=== PATIENT | female | born 1945 | race Caucasian/White ===

== ENCOUNTER 2020-02-06 13:44 | Emergency (ER) | payer MEDICARE, BC ==
[~2020-02-06] VITALS: Ht 154.9 cm; Wt 124.0 kg
[~2020-02-06 13:44] MED LIST: ALTACE10 M1 PO; ALTACE2.5 M1 PO; ALTACE5 M1 PO; AMBIEN10 MG PO; AMBIEN5 MG PO; AMOXICILLIN/PO500 MG PO; ATENOLOL50 MG OR; AUGMENTIN500TAB PO; BABY ASPIRIN81 MG PO; CITRACA1 PO; CLONIDINE0.2 MG OR; CLONIDINE0.2 MG PO; FLUARIX QUADRIV1 INJ IM; FLULAVAL IM; FUROSEMIDE20 MG PO; HALCION0.25 MG PO; LANTUS IM; LANTUS SOLOSTAR SC; LORTAB 1010 MG PO; LORTAB 7.5 PO; LORTAB 7.57.5 MG PO; LYRICA50 MG PO; LYRICA75 MG PO; METFORMIN HCL1000 M1 PO; METFORMIN500 M2 PO; MICRO-K10 MEQ PO; MULT1 PO; NORVASC10 M1 PO; OMEPRAZOLE40 MG PO; PLAVIX75 MG PO; POLYSPORIN3.5 GM OP; ROBITUSSIN AC10 ML PO; TRICOR145 MG PO; VYTORIN 10/201 TAB PO; ZYRTEC-D AL1 OR; ZYRTEC-D AL1 PO; [UNRECOGNIZED DRUG - OTHER] PO
[2020-02-06 14:54] LABS: HEMOGLOBIN 13.3 g/dl (12.0-16.0); IMMATURE GRANULOCYTES 0.5 % (0.0-5.0); MEAN CELL VOLUME 85.8 fL CALC (80.0-100.0); MEAN CORPUSCULAR HGB 27.8 pG CALC (26.0-32.0); MEAN CORPUSCULAR HGB CONC 32.4 g/dL CAL (32.0-36.0); NEUT# 5.56 thou/uL (2.00-7.15); RED BLOOD COUNT 4.78 mill/uL (4.20-5.60); RED CELL DISTRI WIDTH 14.8 % (11.5-15.5)
[2020-02-06 15:13] LABS: ALBUMIN 4.2 g/dL (3.2-5.0); ALKALINE PHOSPHATASE 40 u/l (38-126); AMYLASE 66 u/l (30-110); ANION GAP 14 (6-22 (CALC)); BILIRUBIN, TOTAL 0.4 mg/dL (0.0-1.4); BUN 18 mg/dL (8-23); BUN/CREATININE RATIO 19 (12-20 (CALC)); CARBON DIOXIDE 25 mmol/l (22-30); CHLORIDE 104 mmol/l (95-108); GFR 54 ML/MIN (>=60 (CALC)); GFR FOR AFR.AMER. > 60 ML/MIN (>=60 (CALC)); LIPASE 78 u/l (23-300); POTASSIUM 3.7 mmol/l (3.5-5.1); SGOT/AST 38 u/l (9-36); SODIUM 139 mmol/l (137-146); TOTAL PROTEIN 7.5 g/dL (6.3-8.2)
[2020-02-06 16:25] LABS: URINE BLOOD DIPSTICK SMALL (NEGATIVE); URINE COLOR YELLOW; URINE GLUCOSE - DIPSTICK NEGATIVE (NEGATIVE); URINE KETONE 15 mg/dL (NEGATIVE); URINE LEUK ESTERASE NEGATIVE (NEGATIVE); URINE NITRITE - DIPSTICK NEGATIVE (Negative); URINE PROTEIN - DIPSTICK >=300 mg/dL (NEG-TRACE); URINE SPECIFIC GRAVITY 1.025; URINE UROBILINOGEN - DIPSTICK 0.2 E.U./dL (0.2)
[2020-02-06 16:36] LABS: URINE BILIRUBIN - DIPSTICK NEGATIVE (NEGATIVE)
[2020-02-06 16:37] LABS: URINE SQUAMOUS EPITHELIAL CELL FEW EPI/hpf (0-FEW); URINE WBC 0-2 WBC/hpf (0-5)
[2020-02-06] MEDS ORDERED: ZOFRAN4 MG/TAB PO (17:23)
[2020-02-06] MEDS ORDERED: PROTONIX40 MG PO (17:23)
[2020-02-06] MEDS ORDERED: CARAFATE1 GM PO (17:23)
[2020-02-06] MEDS ORDERED: LORTAB 1010 MG PO (18:12)
[2020-02-06 18:21] VITALS: BP 165/109
== END 2020-02-06 18:20 | disposition home or self-care (01) ==
LOC: ED 13:44
DX: R11.2 Nausea with vomiting, unspecified (principal); R10.13 Epigastric pain; C43.9 Malignant melanoma of skin, unspecified; C79.9 Secondary malignant neoplasm of unspecified site; I10 Essential (primary) hypertension; E11.9 Type 2 diabetes mellitus without complications; Z79.4 Long term (current) use of insulin
CPT/HCPCS: Q9967

== ENCOUNTER 2020-02-07 08:14 | Observation (INO) | payer MEDICARE, BC ==
[~2020-02-07] VITALS: Ht 154.9 cm; Wt 112.6 kg
[~2020-02-07 08:14] MED LIST changes: +CARAFATE1 GM PO; +PROTONIX40 MG PO; +ZOFRAN4 MG/TAB PO
--- NOTE | 2020-02-07 08:15 | NUR ---
DR OSMAN AT BEDSIDE; PT MEDICATED PER MAR FOR EPIGASTRIC PAIN AND NAUSEA
--- NOTE | 2020-02-07 08:15 | NUR ---
PATIENT TO ROOM VIA EMS STRETCHER
[2020-02-07 08:47] LABS: HEMATOCRIT 40.4 % (37.0-47.0); HEMOGLOBIN 13.2 g/dl (12.0-16.0); IMMATURE GRANULOCYTES 0.5 % (0.0-5.0); MEAN CELL VOLUME 85.2 fL CALC (80.0-100.0); MEAN CORPUSCULAR HGB 27.8 pG CALC (26.0-32.0); MEAN CORPUSCULAR HGB CONC 32.7 g/dL CAL (32.0-36.0); NEUT# 5.3 thou/uL (2.00-7.15); RED BLOOD COUNT 4.74 mill/uL (4.20-5.60); RED CELL DISTRI WIDTH 14.9 % (11.5-15.5)
[2020-02-07 09:08] LABS: ALBUMIN 3.9 g/dL (3.2-5.0); BILIRUBIN, TOTAL 0.4 mg/dL (0.0-1.4); CREATININE 1.1 mg/dL (0.5-1.0); POTASSIUM 3.7 mmol/l (3.5-5.1); TOTAL PROTEIN 7.1 g/dL (6.3-8.2)
--- NOTE | 2020-02-07 09:15 | NUR ---
PT IS STILL HAVE SOME NAUSEA. MORE MEDICATION IS BEING ORDERED. PAIN SEEMS TO BE GETTING BETTER.
[2020-02-07 09:38] LABS: TSH, 3RD GENERATION 1.7 uIU/mL (0.47 - 4.68)
--- NOTE | 2020-02-07 10:15 | NUR ---
PT IS RESTING BETTER AFTER MEDICATION. PT IS AWAITING ROOM ASSIGNMENT. NO DISTRESS NOTED.
--- NOTE | 2020-02-07 10:49 | NUR ---
RECIEVED REPORT FROM SIDRA TRUJILLO. PT ARRIVED TO MED SURG ROOM 269 IN STABLE CONDITON VIA WHEEL CHAIR. PT WALKED TO BED WITH UNSTEADY GAIT, FALL RISK BAND APPLIED. ASSESSMENT AND VITALS COMPLETED AT THIS TIME. BP 180/52, HR 99, O2 96% ON 2L NC. RESPIRATIONS ARE LABORED FROM WALKING TO STRETCHER TO BED, HAD PT LAY IN BED WITH HEAD UP. LUNG SOUNDS ARE CLEAR. HEART RHYTHM IS NORMAL, TELE IN PLACE. BOWEL SOUNDS ARE ACTIVE IN ALL QUADRANTS WITH SOME TENDERNESS.LAST REPORTED BM 02/05/2020. PT REPORTS NAUSEA, ZOFRAN TO BE ADMINISTERED. RADIAL AND PEDAL PULSES ARE STRONG WITH NORMAL CAPILLARY REFILL. NO EDEMA OR SKIN BREAK DOWN PRESENT. PT PRESENTED TO ER WITH NAUSEA. PT STATES SHE HAS NO KNOWN ALLERGIES, ALLERGY BAND APPLIED. #20G IN LAC FLUSHED, SITE APPEARS HEALTHY AND PATENT. IV FLUIDS STARTED AT 100 ML ORDERED. PT DENIES ANY PAIN OR DISCOMFORTS AT THIS TIME.ALL SAFTEY PRECAUTIONS IN PLACE, PT ORIENTING TO CALL SYSTEM AND ROOM. WILL CONTINUE TO MONITOR.
--- NOTE | 2020-02-07 10:50 | NUR ---
Admission Note Report Given to: PIPER Transported by: Wheelchair X Stretcher Transported with: X Nurse Transporter X Patent IV X O2 X Planning Feeder Location: ICU X MS2
[2020-02-07 11:00] VITALS: BP 180/52
[2020-02-07 12:04] VITALS: BP 187/80
--- NOTE | 2020-02-07 12:36 | NUR ---
PT RESTING IN SEMI FOWLERS POSITION, RESPIRATIONS ARE EVEN AND UNLABORED. REASSESSMENT OF BLOOD PRESSURE RESULTING IN 187/80, HR 105. CATAPRESS ADMINISTERED AT THIS TIME. PT COMPLAINING OF NAUSEA, ZOFRAN ALSO ADMINISTERED. PT DENIES ANY PAINS OR ADDITIONAL NEEDS. ALL SAFETY PRECAUTIONS PRECAUTIONS IN PLACE WITH CALL LIGHT IN REACH. WILL CONTINUE TO MONITOR
--- NOTE | 2020-02-07 13:19 | NUR ---
REASSESSMENT OF BP RESULTING IN 162/81, HR 101, O2 95% ON ROOM AIR. PT REPORTS NAUSEA STILL AT THIS TIME. WRITTER EXPLAINED TO PT TO ALLOW MORE TIME FOR CELESTINA TO WORK AND SPEAK TO AGATHA, ANRP TO GET SOMETHING ELSE THAT WOULD ASSIST. AGATHA NOTIFIED AT THIS TIME. AWAITNG ORDERS. ALL SAFTEY PRECAUTIONS IN PLACE WITH CALL LIGHT IN REACH. WILL CONTINUE TO MONITOR
[2020-02-07 15:15] VITALS: BP 181/69
--- NOTE | 2020-02-07 15:38 | NUR ---
PHENERGAN ADMINISTERED AT THIS TIME TO ASSIST WITH NAUSEA. RESPIRATIONS ARE EVEN AND UNLABORED AT THIS TIME.ASK PT IF SHE WAS EXPRIENCING ANY PAIN, PT VERBALIZED SHE WAS NOT AND DIDNT NEED ANY PAIN MEDICATION. ALL SAFTEY PRECAUTIONS IN PLACE WITH CALL LIGHT IN REACH. WILL CONTINEU TO MONITOR.
--- NOTE | 2020-02-07 15:43 | NUR ---
REPORTED BP 181/89 AND HR 88. PT STILL COMPLAINS OF NAUSEA. AGATHA, INFORMED. PHENERGAN ADMINISTERED AT THIS TIME. LISINOPRIL AND NORVSAC TO BE ADMISITERED TO ASSIST WITH BP AFTER NAUSEA RESOLVES. ALL SAFTEY PRECAUTIONS IN PLACE. WILL CONTINUE TO MONITOR
[2020-02-07 16:38] VITALS: BP 178/63
--- NOTE | 2020-02-07 17:10 | NUR ---
NORVASC AND LISINOPRIL ADMINISTERED AT THIS TIME TO ASSIST WITH BP. ALL SAFTEY PRECAUTIONS IN PLACE WITH CALL LIGHT IN REACH. NESSA CONTINUE TO MONITOR
[2020-02-07 18:30] VITALS: BP 209/73
--- NOTE | 2020-02-07 18:36 | NUR ---
PT BLOOD PRESSURE ELEVATED AT 209/73 HR 101, PT ASYMPTOMATIC AT THIS TIME. NOTIFIED AND NEW ORDERS RECEIVED.
--- NOTE | 2020-02-07 18:48 | NUR ---
PT REPORTS NAUSEA AT THIS TIME. INFORMED PT THAT THE ONLY AVAILABLE MED FOR NAUSEA WAS ZOFRAN. PT VERBALIZED UNDERSTANDING. ZOFRAN ADMINISTERED AT THIS TIME.ALL SAFTEY PRECAUTIONS IN PLACE WITH CALL LIGHT IN REACH. WILL CONTINUE TO MONITOR
[2020-02-07 19:10] VITALS: BP 194/60
[2020-02-07 19:12] LABS: URINE BLOOD DIPSTICK LARGE (NEGATIVE); URINE COLOR YELLOW; URINE GLUCOSE - DIPSTICK 100 mg/dL (NEGATIVE); URINE KETONE NEGATIVE (NEGATIVE); URINE LEUK ESTERASE NEGATIVE (NEGATIVE); URINE NITRITE - DIPSTICK NEGATIVE (Negative); URINE PH 5.5 (4.5-8.0); URINE PROTEIN - DIPSTICK >=300 mg/dL (NEG-TRACE); URINE SPECIFIC GRAVITY >=1.030; URINE UROBILINOGEN - DIPSTICK 0.2 E.U./dL (0.2)
[2020-02-07 19:14] LABS: URINE BILIRUBIN - DIPSTICK NEGATIVE (NEGATIVE)
[2020-02-07 19:20] LABS: URINE AMORPH SEDIMENT FEW hpf (NONE-FEW); URINE SQUAMOUS EPITHELIAL CELL FEW EPI/hpf (0-FEW)
--- NOTE | 2020-02-07 21:30 | NUR ---
PT RESTING IN BED ALERT AND ORIENTED. RESPIRATIONS EVEN AND UNLABORED ON O2 @ 2L VIS NC. PT NAUSEATED AND COMPLAINS OF PAIN IN HER ABD. PT TO BE MEDICATED PER EMAR ORDERS. SAFETY PRECAUTIONS IN PLACE. WILL CONTINUE TO MONITOR.
[2020-02-08] VITALS (11 sets, daily range): BP systolic 136–185; BP diastolic 62–80
--- NOTE | 2020-02-08 00:02 | NUR ---
PT RESTING IN BED, FREE FROM DISTRESS AT THIS TIME. BED ALARM ACTIVE FOR PT SAFETY. WILL CONTINUE TO MONITOR.
--- NOTE | 2020-02-08 05:56 | NUR ---
PT RESTING IN BED, RESPIRATIONS EVEN AND UNLABORED, SAFETY PRECAUTIONS IN PLACE.
--- NOTE | 2020-02-08 07:30 | NUR ---
RECIEVED REPORT FROM SIDRA INIGUEZ. PT SLEEPING IN LOW FOWLERS POSITION UPON ENTERING ROOM. RESPIRATIONS ARE EVEN AND UNLABORED WITH NO SIGNS OF DISTRESS. IV RUNNING AT 100 ML ORDERED. NO SIGNS OF ANY PAIN OR DISCOMFORTS AT THIS THIS TIME. ALL SAFTEY PRECATUIONS IN PLACE WITH CALL LIGHT IN REACH. WILL CONTINUE TO MONITOR.
--- NOTE | 2020-02-08 10:10 | NUR ---
PT SITTING UP ON SIDE OF BED UPON ENTERING ROOM. INTRODUCED SELF TO PT AND DISCUSSED POC. PT IS A/OX 3 AND ASSIST X1. ASSESSMENT AND VITALS COMPLETED AT THIS TIME. BP 151/66, HR 97, O2 92% ON ROOM AIR. PT DOES HAVE 2L O2 NC BUT PT STATED SHE DID NOT NEED IT AT THIS TIME, INFORMED PT TO REAPPLY WHEN NEEDED, PT VERBALIZED UNDERSTANDING. RESPIRATIONS ARE SHALLOW AT THIS TIME. R/T REPORTED NASUEA, INFORMED PT THAT ZOFRAN WAS THE ONLY AVAILABLE MED AT THIS TIME, PT VERBALIZED UNDERSTANDING AND ACCEPTED ZOFRAN. LUNG SOUNDS ARE CLEAR. HEART RYTHM IS NORMAL. BOWEL SOUNDS ARE ACTIVE IN ALL QUADRANTS WITH TENDERNESS IN ALL QUADRANTS. RADIAL AND PEDAL PULSES ARE STRONG WITH NORMAL CAPILLARY REFILL. SKIN IS WARM AND DRY WITH NO BREAK DOWN. IV FLUIDS RUNNING, SITE APPEARS HEALTHY AND PATENT AT THIS TIME. PT DENIES ANY OTHER PAINS OR DISCOMFORTS AT THIS TIME. ALL SAFTEY PRECAUTIONS IN PLACE WITH CALL LIGHT IN REACH. WILL CONTINUE TO MONITOR
--- NOTE | 2020-02-08 11:23 | NUR ---
AT BEDSIDE DISCUSSING POC WITH PT AND FAMILY MEMBER.NEW ORDERS RECEIVED FOR EKG,CHEST XRAY,AND LAB WORK.
--- NOTE | 2020-02-08 11:26 | NUR ---
RT AT BEDSIDE OBTAINING EKG.
--- NOTE | 2020-02-08 11:28 | NUR ---
REPORTED BP 175/70 BY REYNALDO CORONADO. REASSESSMENT OF BP AT THIS TIME RESULTING IN 178/76, HR 95, O2 96% ON ROOM AIR. RESPIRATIONS ARE EVEN AND UNLABORED. PT COMPLAINS OF NAUSEA, PHENERGAN TO BE ADMINISTERED. PT DENIES OF ANY OTHER APINS OR DISCOMFORTS AT THIS TIME. ALL SAFTEY PRECATUIONS IN PLACE WITH CALL LIGHT IN REACH.WILL CONTINUE TO MONITOR
--- NOTE | 2020-02-08 11:30 | NUR ---
PT CURRENT BP 175/70 HR 85, PT TO BE MEDICATED WITH PRN APRESOLINE 10MG IVP BY SIDRA NATH.WILL CONTINUE TO MONITOR FOR EFFECTIVENESS.
--- NOTE | 2020-02-08 11:37 | NUR ---
XRAY AT BEDSIDE
--- NOTE | 2020-02-08 11:41 | NUR ---
LAB AT BEDSIDE
[2020-02-08 12:19] LABS: ALBUMIN 3.2 g/dL (3.2-5.0); ALKALINE PHOSPHATASE 38 u/l (38-126); ANION GAP 6 (6-22 (CALC)); BILIRUBIN, TOTAL 0.3 mg/dL (0.0-1.4); BUN 20 mg/dL (8-23); BUN/CREATININE RATIO 22 (12-20 (CALC)); CARBON DIOXIDE 30 mmol/l (22-30); CHLORIDE 107 mmol/l (95-108); CREATININE 0.9 mg/dL (0.5-1.0); GFR > 60 ML/MIN (>=60 (CALC)); GFR FOR AFR.AMER. > 60 ML/MIN (>=60 (CALC)); POTASSIUM 3.6 mmol/l (3.5-5.1); SGOT/AST 49 u/l (9-36); SODIUM 140 mmol/l (137-146); TOTAL PROTEIN 5.9 g/dL (6.3-8.2)
--- NOTE | 2020-02-08 12:24 | NUR ---
MEDICATED PT WITH APRESOLINE 10MG IV PER MAR AND MD ORDERS FOR BP 175/70 HR 85
--- NOTE | 2020-02-08 12:25 | NUR ---
PT EDUCATED ON DISCHARGE INSTRUCTIONS AND KEFLEX. VERBALIZED UNDERSTANDING AND STATED SHE DID NOT HAVE ANY QUESTIONS. ASKED FOR COPY OF KIDNEY FUNCTIONS, WRITTER INFORMED THAT SHE WOULD HAVE TO CONTACT MEDICAL RECORDS 48 HOURS AFTER DISCHARGE. VERBALIZED UNDERSTANDING. ALL SAFTEY PRECAUTIONS IN PLACE A THIS TIME WITH CALL LIGHT IN REACH. AWAITING FOR TRANSPORTATION SCHEDULED AT @1330. WILL CONTINUE TO MONITOR
--- NOTE | 2020-02-08 12:29 | NUR ---
PT MEDICATED WITH APRESIONE IV BY SIDRA RDZ. ALL SAFTEY PRECAUTIONS REAMIN IN PLACE. WILL CONTINUE TO MONITOR.-
--- NOTE | 2020-02-08 12:43 | NUR ---
PT REQUESTING PAIN PILL AT THIS TIME, LORTAB ADMINISTERED. REASSESSMENT OF BP RESULTING IN 171/74, HR 90, O2 96% ON 2L NC. RESPIRATIONS ARE EVEN AND UNLABORED. ALL SAFTEY PRECAUTIONS REAMIN IN PLACE WITH CALL LIGHT IN REACH. WILL CONTINUE TO MONITOR
--- NOTE | 2020-02-08 13:50 | NUR ---
REASSESSMNET OF BP RESULTING IN 168/79, HR 93. PT REPORTS THAT PHENERGAN AND LORTAB IS HELPING WITH NAUSEA AND PAIN. ALL SAFTEY PERCAUTIONS IN PLACE WITH CALL LIGHT IN REACH. WILL CONTINUE TO MONITOR
--- NOTE | 2020-02-08 14:27 | NUR ---
PT REPORTS 6/10 PAIN IN RIGHT LEG. OFFERED LORTAB, PT ACCEPTED. LOTAB ADMINISTERED AT THIS TIME.ALL SAFTEY PRECAUTIONS IN PLACE WITH CALL LIGHT IN REACH. WILL CONTINUE TO MONITOR.
--- NOTE | 2020-02-08 15:33 | NUR ---
REASSESSMENT OF BP RESULTING IN 184/79, HR 101. AGATHA, ANRP NOTIFIED. ZESTRIL 20 MG ORDERD. ZISTRIL ADMINISTERED AT THIS TIME. REPPIRTAIONS ARE EVEN AND UNLABORED. PT DENIES ANY PAIN OR NAUSEA. ALL SAFTEY PRECAUTIONS IN PLACE WITH CALL LIGHT IN REACH. WILL CONTINUE TO MONITOR
--- NOTE | 2020-02-08 16:10 | NUR ---
PT REPORTS THAT LORTAB IS NOT HELPING. MORPHINE OFFERED, PT ACCEPTED. MORPHONE ADMINISTERED AT THIS TIME. RESPIRATIONS ARE EVEN AND UNLABORED WITH NO SIGNS OF DISTRESS. PT DENIES ANY OTHER PAINS OR DISCOMFORTS. ALL SAFTEY PERCAUTIONS IN PLACE. WILL CONTINUE TO MONITOR.
--- NOTE | 2020-02-08 17:25 | NUR ---
REASSESSMENT OF BP RESULTING IN 152/74, HR 101. PT COMPLAINS OF NAUSEA. PHENERGAN ADMINISTERED AT THIS TIME. RESPIRATIONS ARE EVEN AND UNLABORED WITH NO SIGNS OF DISTRESS. ALL SAFTEY PRECAUTIONS IN PLACE WITH CALL LIGHT IN REACH. WILL CONTINUE TO MONTIOR
--- NOTE | 2020-02-08 17:29 | NUR ---
REASSESSMENT OF BP RESULTING IN 185/80. HR 108.RESPIRATIONS ARE EVEN AND UNLABORED WITH NO SIGNS OF DISTRESS. PT DENIES ANY PAINS OR DISCOMFORTS AT THIS TIME . ALL SAFTEY PRECAUTIONS IN PLACE WITH CALL LIGHT IN REACH. WILL CONTINUE TO MONTIOR
--- NOTE | 2020-02-08 18:25 | NUR ---
REASSESSMENT OF BP RESULTING IN 152/74, HR 101. PT COMPLAINING OF NAUSEA, PHENERGAN ADMINISTERED. REPIRATIONS ARE EVEN AND UNLABORED WITH NO SIGNS OF DISTRESS. PT DENIES OF ANY PAIN OR DISCOMFORTS AT THIS TIME. ALL SAFTEY PRECAUTIONS IN PLACE. WILL CONTINUE TO MONITOR
--- NOTE | 2020-02-08 19:45 | NUR ---
PT ALERT AND ORIENTED X3, NO SIGNS OF DISTRESS NOTED, RESP EVEN AND UNLABORED. PT VOICES NO NEEDS OR COMPLAINTS AT THIS TIME. DISCUSSED POC, PT ALERT AND ORIENTED X3, ASSESSMENT COMPLETED, CALL LIGHT IN REACH,CONTINUE TO MONITOR.
--- NOTE | 2020-02-08 21:01 | NUR ---
PT SITTING ON SIDE OF BED, DUE TO NO BM IN 3 DAYS, PT MEDICATED WITH MOM. PT TOLERATED WELL. VOICES NO NEEDS OR COMPLAINTS, CALL LIGHT IN REACH,CONTINUE TO MONITOR.
--- NOTE | 2020-02-08 23:35 | NUR ---
PT RESTING IN BED, VITALS OBTAINED. VOICES NO NEEDS OR COMPLAINTS AT THIS TIME, CALL LIGHT IN REACH,CONTINUE TO MONITOR.
[2020-02-09 03:36] VITALS: BP 187/74
--- NOTE | 2020-02-09 03:52 | NUR ---
PT HAS BP ELEVATED, RN TO GIVE LABATELOL, PT DID NOT RECEIVE LABATELOL AT SCHEDULED TIME SINCE PT DID NOT NEED IT AT THAT TIME. CALL LIGHT IN REACH,CONTINUE TO MONITOR.
[2020-02-09 04:38] VITALS: BP 141/64
--- NOTE | 2020-02-09 05:37 | NUR ---
PT RESTING IN BED, NO SIGNS OF DISTRESS NOTED, RESP EVEN AND UNLABORED. CALL LIGHT IN REACH,CONTINUE TO MONITOR.
[2020-02-09 05:57] LABS: HEMOGLOBIN 11.4 g/dl (12.0-16.0); MEAN CORPUSCULAR HGB 27.9 pG CALC (26.0-32.0); MEAN CORPUSCULAR HGB CONC 31.7 g/dL CAL (32.0-36.0); RED BLOOD COUNT 4.09 mill/uL (4.20-5.60); RED CELL DISTRI WIDTH 15.3 % (11.5-15.5)
[2020-02-09 06:27] LABS: ALBUMIN 2.9 g/dL (3.2-5.0); ALKALINE PHOSPHATASE 36 u/l (38-126); ANION GAP 5 (6-22 (CALC)); BILIRUBIN, TOTAL 0.2 mg/dL (0.0-1.4); BUN 19 mg/dL (8-23); BUN/CREATININE RATIO 22 (12-20 (CALC)); CARBON DIOXIDE 29 mmol/l (22-30); CHLORIDE 109 mmol/l (95-108); CREATININE 0.9 mg/dL (0.5-1.0); GFR > 60 ML/MIN (>=60 (CALC)); GFR FOR AFR.AMER. > 60 ML/MIN (>=60 (CALC)); POTASSIUM 3.8 mmol/l (3.5-5.1); SGOT/AST 61 u/l (9-36); SODIUM 140 mmol/l (137-146); TOTAL PROTEIN 5.5 g/dL (6.3-8.2)
--- NOTE | 2020-02-09 07:15 | NUR ---
REPORT RECEIVED FROM SUHA MATOS;PT APPEARS TO BE SLEEPING IN SEMI FOWLERS POSITION;NO S/S OF DISTRESS NOTED;RESPIRATIONS APPEAR EVEN AND UNLABORED ON O2 @ 2L VIA NC;TELE MONITORING IN PLACE;ALL SAFETY PRECAUTIONS NOTED WITH BED IN THE LOWEST POSITION AND CALL LIGHT IN REACH;WILL CONTINUE TO MONITOR
[2020-02-09 08:30] VITALS: BP 148/65
--- NOTE | 2020-02-09 08:30 | NUR ---
PT RESTING IN SUPINE POSITION WITH ANRP AT BEDSIDE,A&O X3;PT ASSISTED TO RECLINER WITH A WEAK GAIT AND X2 PERSON ASSIST;PT REPORTS NAUSEA BUT DENIES THE NEEDS FOR ANTIEMETIC AT THIS TIME;VS OBTAINED AND ASSESSMENT COMPLETED;OXYGEN REMOVED PER J.VEST ANRP AND PT O2 SATS REMAINS LOW 90%;RESPIRATIONS EVEN AND UNLABORED,DIMINISHED LUNG SOUNDS NOTED;NON-PRODUCTIVE COUGH AT TIMES;ABDOMEN DISTENDED/SOFT ON PALPATION AND ACTIVE IN ALL 4 QUADRANTS, LAST BM 02/05/20.PT WAS MEDICATED WITH MOM AND PRUNE JUICE ON WIND TURBINE TECHNICIAN TO ASSIST WITH BOWEL CARE;WEAK PEDAL PULSES;SKIN INTACT;TELE MONITORING IN PLACE;#20G TO ROLA FLUSHED AND PATENT,SITE APPEARS HEALTHY;PT REPORTS LOWER BACK PAIN BUT DENIES THE NEED FOR PAIN MEDICATION AT THIS TIME,PAIN SCALE AND REPORTING EDUCATED;ACCUCHECK 110, LEVEMIR HELD DUE TO PT NOT EATING;PT DENIES ANY ADDITIONAL NEEDS AT THIS TIME AND IS ENCOURAGED TO CALL FOR ASSISTANCE IF NEEDED;FALL PRECAUTIONS IN PLACE WITH BED IN THE LOWEST POSITION AND CALL LIGHT IN REACH;WILL CONTINUE TO MONITOR
--- NOTE | 2020-02-09 09:00 | NUR ---
PT CRYING IN RECLINER REPORTS LOWER BACK PAIN TO BE A 9/10 AND REQUESTS PAIN MEDICATION, PT ADVISED IT WAS TO SOON FOR PRN LORTAB PER MED SCHEDULE, AGATHA ANRP NOTIFIED ON INCREASED BACK PAIN AND NEW ORDER RECEIVED FROM X1 TORADOL;PT TO BE MEDICATED PER ORDER;WILL CONTINUE TO MONITOR
--- NOTE | 2020-02-09 09:30 | NUR ---
PT RESTING IN SEMI FOWLERS POSITION WITH DAUGHTER AT BEDSIDE;PT REPORTS RELIEF IN BACK PAIN SINCE PAIN MEDICATION ADMINISTRATION;PT DENIES ANY ADDITONAL NEEDS;WILL CONTINUE TO MONITOR
--- NOTE | 2020-02-09 11:00 | NUR ---
AT BEDSIDE DISCUSSING POC INCLDUING PLANS TO D/C HOME.
[2020-02-09 11:06] VITALS: BP 132/63
--- NOTE | 2020-02-09 11:20 | NUR ---
PT RESTING AT BEDSIDE WITH VISITOR,NAUSEOUS AND DRY HEAVYING;PT REQUESTS PHENERGAN PRN.IV SITE INFILTRATEDN PRIOR TO ADMINISTRATION,IV SITE REMOVED WITH CATHETER INTACT; AGATHA VALLE NOTIFIED,PHENERGAN IM TO BE ORDERED;TELE MONITORING IN PLACE;PT DENIES ANY ADDITIONAL NEEDS;ENCOURAGED TO CALL FOR ASSISTANCE IF NEEDED;CALL LIGHT IN REACH;AWAITING NEW ORDER
--- NOTE | 2020-02-09 11:50 | NUR ---
PT MEDICATED WITH PHENERGAN IM TO RIGHT BUTTOCK AT THIS TIME,PT TOLERATED WELL.WILL CONTINUE TO MONITOR
[2020-02-09] MEDS ORDERED: PHENERGAN25 MG/TAB PO (12:21)
--- NOTE | 2020-02-09 13:10 | NUR ---
PT RESTING COMFORTABLY IN BED WITH FAMILY AT BEDSIDE;RESPIRATIONS EVEN AND UNLABORED ON RA;PT DENIES ANY PAIN OR NAUSEA AT THIS TIME;TELE MONITORING IN PLACE;PT AND FAMILY AGREE TO DISCHARGE HOME;FAMILY TO TRANSPORT PT HOME;WILL CONTINUE TO MONITOR
--- NOTE | 2020-02-09 13:24 | NUR ---
ALL DISCHARGE INSTRUCTIONS PROVIDED AT THIS TIME;PT INSTRUCTED TO F/U WITH HER PCP, MONITOR BP AND IF >160 MAY NEED TO BE STARTED ON ANOTHER BP MED, AND CONTINUE HER CLONDINE;RX FOR PHENERGAN PROVIDED;TELE MONITORING D/C AT THIS TIME;PT AND FAMILY DENY ANY ADDITIONAL NEEDS OR QUESTIONS;WHEELCHAIR TO BE PROVIDED FOR D/C HOME;FAMILY TO TRANSPORT PT HOME.
--- NOTE | 2020-02-09 13:30 | NUR ---
Discharge instructions given. Patient verbalizes understanding of same. Discharged in stable condition via Wheelchair to Home with family. All belongings sent with pt. PT TRANSPORTED TO [facility] IN STABLE CONDITION VIA WHEELCHAIR ACCOMPANIED BY REYNALDO GILL AND FAMILY.
== END 2020-02-09 13:28 | disposition home or self-care (01) ==
LOC: ED 08:14 → ED-I 09:24 → ED 09:46 → MS2 09:47
PROVIDERS: Family Medicine; Nurse Practitioner Family; ADMIT Internal Medicine; ATTEND Internal Medicine
DX: R11.2 Nausea with vomiting, unspecified (principal); R10.13 Epigastric pain; E86.0 Dehydration; C79.51 Secondary malignant neoplasm of bone; I10 Essential (primary) hypertension; E11.9 Type 2 diabetes mellitus without complications; I25.10 Atherosclerotic heart disease of native coronary artery without angina pectoris; E78.5 Hyperlipidemia, unspecified; E03.9 Hypothyroidism, unspecified; E66.01 Morbid (severe) obesity due to excess calories; Z68.42 Body mass index [BMI] 45.0-49.9, adult; Z85.820 Personal history of malignant melanoma of skin; Z79.4 Long term (current) use of insulin; Z20.828 Contact with and (suspected) exposure to other viral communicable diseases
CPT/HCPCS: G0378

== ENCOUNTER 2020-02-14 10:17 | Observation (INO) | payer MEDICARE, BC ==
[~2020-02-14] VITALS: Ht 152.4 cm; Wt 115.2 kg
[~2020-02-14 10:17] MED LIST changes: +PHENERGAN25 MG/TAB PO
--- NOTE | 2020-02-14 10:17 | NUR ---
PATIENT TO ROOM VIA EMS STRETCHER. PT DRY HEAVING AT THIS TIME. 100 MLS OF CLEAR EMESIS NOTED.
[2020-02-14 10:54] LABS: HEMOGLOBIN 12.3 g/dl (12.0-16.0); IMMATURE GRANULOCYTES 1.2 % (0.0-5.0); MEAN CELL VOLUME 86.4 fL CALC (80.0-100.0); MEAN CORPUSCULAR HGB CONC 32.4 g/dL CAL (32.0-36.0); NEUT# 4.94 thou/uL (2.00-7.15); RED BLOOD COUNT 4.4 mill/uL (4.20-5.60); RED CELL DISTRI WIDTH 15.3 % (11.5-15.5)
--- NOTE | 2020-02-14 11:05 | NUR ---
PATIENT MEDICATED WITH PHENERGAN AND MORPHINE PER ORDERED.
--- NOTE | 2020-02-14 12:00 | NUR ---
PT RETURNED FROM CT AND IS RESTING COMFORTABLY IN STRETCHER WITH EYES CLOSED. PT DENIES ANY NEEDS. PAIN 12/24. CALL SANDHU WITHIN REACH.
[2020-02-14 12:16] LABS: ALKALINE PHOSPHATASE 43 u/l (38-126); AMYLASE 50 u/l (30-110); ANION GAP 12 (6-22 (CALC)); BUN 15 mg/dL (8-23); BUN/CREATININE RATIO 15 (12-20 (CALC)); CARBON DIOXIDE 29 mmol/l (22-30); CHLORIDE 101 mmol/l (95-108); GFR 54 ML/MIN (>=60 (CALC)); GFR FOR AFR.AMER. > 60 ML/MIN (>=60 (CALC)); LIPASE 144 u/l (23-300); POTASSIUM 3.8 mmol/l (3.5-5.1); SGOT/AST 35 u/l (9-36); SODIUM 137 mmol/l (137-146)
[2020-02-14 12:21] LABS: ALBUMIN 3.7 g/dL (3.2-5.0); BILIRUBIN, TOTAL 0.5 mg/dL (0.0-1.4); TOTAL PROTEIN 6.8 g/dL (6.3-8.2)
--- NOTE | 2020-02-14 12:30 | NUR ---
PATIENT HYPERTENSIVE AT 203/76. MD NOTIFIED.
--- NOTE | 2020-02-14 13:19 | NUR ---
UNABLE TO OBTAIN STRAIGHT CATH URINE SAMPLE. PURE WICK APPLIED.
--- NOTE | 2020-02-14 13:47 | NUR ---
PT C/O NASUEA AND WAS MEDICATED WITH PHENERGAN ORDERED. IV SITE FREE FFROM REDNESS/EDEMA.
[2020-02-14 14:15] LABS: URINE BILIRUBIN - DIPSTICK NEGATIVE (NEGATIVE); URINE BLOOD DIPSTICK LARGE (NEGATIVE); URINE COLOR YELLOW; URINE GLUCOSE - DIPSTICK NEGATIVE (NEGATIVE); URINE KETONE 15 mg/dL (NEGATIVE); URINE LEUK ESTERASE NEGATIVE (NEGATIVE); URINE NITRITE - DIPSTICK NEGATIVE (Negative); URINE PROTEIN - DIPSTICK >=300 mg/dL (NEG-TRACE); URINE SPECIFIC GRAVITY 1.015; URINE UROBILINOGEN - DIPSTICK 0.2 E.U./dL (0.2)
--- NOTE | 2020-02-14 14:15 | NUR ---
PATIENT RESTING IN STRETCHER WITH EYES CLOSED AND DENIES ANY NAUSEA. ASSSISTED WITH REPOSITIONING PAITENT.
[2020-02-14 14:28] LABS: URINE SQUAMOUS EPITHELIAL CELL FEW EPI/hpf (0-FEW); URINE WBC 0-2 WBC/hpf (0-5)
--- NOTE | 2020-02-14 15:00 | NUR ---
PATIENT AWARE OF PENDING ADMISSION AND WAIT TIME. SHE IS RESTING ON LEFT SIDE INNAD AND DENIES ANY NEEDS. CALL EDSON CONTI.
--- NOTE | 2020-02-14 16:00 | NUR ---
PATIENT DENIES ANY NAUSEA AT THIS TIME AND IS UPDATED ON PLAN FOR ADMISSION.
--- NOTE | 2020-02-14 16:13 | NUR ---
CALL PLACED TO MS TO GIVE PT REPORT, NO ANSWER.
--- NOTE | 2020-02-14 16:32 | NUR ---
REPORT TO SUHA SALDAÑA.
--- NOTE | 2020-02-14 17:00 | NUR ---
Admission Note Report Given to: PIPER Transported by: Wheelchair X Stretcher Transported with: X Nurse Transporter X Patent IV O2 Powder Worker Tnt Location: ICU X MS2 PT TRANSPORTED TO [facility] IN STABLE CONDITION. PT HAD NASUEA WHILE TRANSPORTING PATIENT TO ROOM. COMPAZINE FROM PHARMACY GIVEN TO JULISSA.
[2020-02-14 17:16] VITALS: BP 184/77
--- NOTE | 2020-02-14 17:16 | NUR ---
RECIEVED REPORT FROM SIDRA MACKEY . PT ARRIVED TO MED SURG ROOM 263 IN [place]BALE CONDITION VIA STRETCHER. PT AMBULATED FROM STRETCHER TO STANDING SCALE RESULTING IN 254.0 LBS;TO BED WITH STEADY GAIT.FALL RISK ALERT BAND APPLIED. ASSESSMENT AND VITALS COMPLETED AT THIS TIME. BP 184/77, HR 95, O2 96% ON 2L NC. RESPIRATIONS ARE SHALLOW R/T NAUSEA. LUNG SOUNDS ARE CLEAR. HERT RHYTHM IS NORMAL.BOWEL SOUNDS ARE ACTIVE IN ALL QUADRANTS WITH NO TENDERNESS. LAST REPORTED BM 02/14/20. RADIAL AND PEDAL PULSES ARE BOTH STRONG WITH NORMAL CAPILLARY REFILL. IV FLUSHED, SITE APPEARS HEALTHY AND PATENT. IV FLUIDS STARTED AT 100 ML ORDERED. SKIN IS COOL AND DRY WITH NO BREAK DOWN. PT PRESENTED TO ER FOR INTRACTABLE NAUSEA/ VOMITING/ HYPERTENSION. COMPAZINE 5MG IV ADMINISTERED AT THIS TIME. PT COMPLAINS OF 8/[address] PARRY NOTIFIED OF PT BP AND PAIN. PT DENIES ANY ALLERGIES, ALLERGY BAND APPLIED.PT DENIES ANY OTHER PAINS OR NEEDS AT THIS TIME. ALL SAFTEY PRECAUTIONS IN PLACE, PT ORIENED TO ROOM AND CALL SYSTEM. WILL CONTINUE TO MONITOR
[2020-02-14 17:30] VITALS: BP 186/69
--- NOTE | 2020-02-14 17:30 | NUR ---
REASSESSMENT OF BP 186/69, HR 92, O2 96% ON 2L NC. PT STATES THTA COMPAZINE 5 MG IV IS" HELPING A LITTLE". RESPIRATIONS ARE SHALLOW R/T NAUSEA. PT COMPLAINS OF 8/[address] PARRY. NOTIFIED OF BP AND PAIN. AWAITING ORDERS AT THIS TIME. ALL SAFETY PRECAUTIONS IN PLACE WITH CALL LIGHT IN REACH. WILL CONTINUE TO MONITOR
--- NOTE | 2020-02-14 17:56 | NUR ---
SPOKE WITH DR PARRY ABOUT TP BP AND PAIN. AWAITING ORDERS AT THIS TIME.
[2020-02-14 18:50] VITALS: BP 188/75
--- NOTE | 2020-02-14 19:03 | NUR ---
REASSESSMENT OF BP RESULTING IN 186/69, HR 62. CATAPRES 0.2MG ADMINISTERED AT THIS TIME ALONG WITH LORTAB FOR 8/10 BACK PAIN. RESPIRATIONS ARE EVEN AND UNLABORED ON 2L NC. PT DENIES ANY OTHER PAINS OR NEEDS. ALL SFATEY PRECAUTIONS REMAIN IN PLACE WITH CALL LIGHT IN REACH. WILL CONTINUE TO MONITOR
--- NOTE | 2020-02-14 20:46 | NUR ---
PATIENT SLEEPING. RESPIRATIONS EVEN AND UNLABORED. NO DISTRESS NOTED. RESPONDED WHEN NAME CALLED. DENIES PAIN. SHIFT ASSESSMENT COMPLETE. MEDICATIONS GIVEN PER MAR. CALL LIGHT IN REACH. WILL CONTINUE TO MONITOR.
[2020-02-15] VITALS (10 sets, daily range): BP systolic 141–180; BP diastolic 66–80
--- NOTE | 2020-02-15 00:10 | NUR ---
PATIENT RESTING IN BED. NO DISTRESS NOTED. RESPIRATIONS EVEN AND UNLABORED. MEDICATIONS ADMINISTERED PER MAR. CALL LIGHT IN REACH. CONTINUE TO MONITOR.
--- NOTE | 2020-02-15 04:35 | NUR ---
PATIENT SLEEPING. NO DISTRESS NOTED. CALL LIGHT IN REACH.
--- NOTE | 2020-02-15 07:12 | NUR ---
RECIEVED REPORT FROM SIDRA GUILLAUME. PT RESTING IN LOW FOWLERS POSITION UPON ENTERING ROOM. INTRODUCED SELF TO PT AND DISCUSSED POC. PT PULLED UP IN BED FOR BREAKFAST. RESPIRATIONS ARE EVEN AND UNLABORED WITH NO SIGNS OF DISTRESS. IV FLUIDS RUNNING AT 100ML ORDERED, SITE APPEARS HEALTHY AND PATENT. ALL SAFTEY PRECAUTIONSIN PLACE WITH CALL LIGHT IN REACH. WILL CONTINUE TO MONITOR
--- NOTE | 2020-02-15 07:38 | NUR ---
ASSESSMNENT AND VITALS COMPLETED AT THIS TIME. PT IS A/O AND ASSIST X1. BP 169/68, HR 67, O2 98% ON 2L NC. RESPIRATIONS ARE EVEN AND UNLABORED WITH NO SIGNS OF DISTRESS. LUNG SOUNDS ARE CLEAR. HEART RHYTHM IS NORMAL. BOWEL SOUNDS ARE HYPOACTIVE WITH NO TENDERNESS, LAST REPORTED BM 02/14/20. RADIAL AND PEDAL PULSES ARE STRONG WITH NORMAL CAPILLARY REFILL. SKIN IS COOL AND DRY WITH NO BREAKDOWN. #20G LAC EMS RUNNING AT 100 ML NS ORDERED, SITE APPEARS HEALTHY AND PATENT. MORNING MEDS ADMINISTERED WITH NO DIFFICULTY.PT SITTING UP IN BED EATING BREAKFAST, CURRENTLY ON CLEAR LIQUID DIABETIC DIET UNTIL ABLE TO TOLERATED. PT DENIES ANY NAUSEA OR PAIN AT THIS TIME. ALL SAFTEY PRECAUTIONS IN PLACE WITH CALL LIGHT IN REACH. WILL CONTINUE TO MONITOR.
--- NOTE | 2020-02-15 10:53 | NUR ---
DR. NANCE AT BEDSIDE DISCUSSING POC
--- NOTE | 2020-02-15 11:34 | NUR ---
PT RESTING IN SEMI FOWLERS POSITION WITH EYES CLOSE. RESPIRATIONS ARE EVEN AND UNLABORED WITH NO SIGNS OF DISTRESS. PT DENIES ANY PAIN OR NAUSEA AT THIS TIME. ALL SAFTEY PRECAUTIONS IN PLACE WITH CALL LIGHT IN REACH .WILL CONTINUE TO MONITOR
[2020-02-15] MEDS ORDERED: LANTUS SOLOSTAR SC ×2 (12:50)
--- NOTE | 2020-02-15 13:49 | NUR ---
PT CURRENT BP 180/80, HR 79. SCHEDULED CATAPRES ADMINISTERED AT THIS TIME. PT COMPLAINS OF BACK PAIN, PT REFUSES PAIN MEDICATION STATING "THE PAIN IS UNDER CONTROL.ALL SAFTEY PRECAUTIONS REMAIN IN PLACE WITH CALL LIGHT WITH IN REACH. WILL CONTINUE TO MONITOR
--- NOTE | 2020-02-15 14:34 | NUR ---
ATTEMPTED TO START NEW IV DUE TO SITE BEING AN EMS SITE. PT REFUSED STATING THAT SHE " SHOULD BE GOING HOME TOMORROW." #20G LAC EMS FLUSHED AT THIS TIME, SITE APPEARS HEALTHY AND PATENT. INFORMED PT THAT IF SITE BECAME UNABLE TO USE WRITTER WOULD HAVE TO START A NEW ONE. PT VERBALIZED UNDERSTANDING. ALL SAFETY PRECAUTIONS IN PLACE WITH CALL LIGHT IN REACH. WILL CONTINUE TO MONITOR
--- NOTE | 2020-02-15 14:57 | NUR ---
REASSESSMENT OF BP RESULTING IN 150/66, HR 73. RESPIRATIONS ARE EVEN AND UNLABORED WITH NO SIGNS OF DISTRESS. PT DENIES ANY PAIN OR DISCOMFORTS AT THIS TIME. ALL SAFTEY PRECAUTIONS IN PLACE WITH CALL LIGHT IN REACH.
--- NOTE | 2020-02-15 16:57 | NUR ---
PT RESTING IN SEMI FOWLERS UPON ENTERING ROOM. RESPIRATIONS ARE EVEN AND UNLABORED. VIATLS OBTINED AT THIS TIME. BP 172/70, HR 81. SCHEDULED APPRESSOLINE TABLET ADMINISTERED. PT DENIES ANY PAINS OR DISCOMFORTS AT THIS TIME. ALL SAFETY PRECAUTIONS IN PLACE WITH CALL LIGHT IN REACH. WILL CONTINUE TO MONITOR
--- NOTE | 2020-02-15 18:28 | NUR ---
REASSESS OF BP RESULTING IN 170/75, HR 88. PT DENIES ANY PAIN OR DISCOMFORTS AT THIS TIME. ALL SAFTEY PRECAUTIONS IN PLACE WITH CALL LIGHT IN PLACE. WILL CONTINUE TO MONITOR
--- NOTE | 2020-02-15 19:05 | NUR ---
REPORT FROM PIPER BORDEN. ASSUMED CARE. PT OOB IN SHOWER AT THIS TIME. PT INCONTINENT OF STOOL. NO APPARENT DISTRESS NOTED. CALL LIGHT WITHIN REACH, ELECTRICAL MAINTENANCE SUPERVISOR IN ROOM.
--- NOTE | 2020-02-15 20:06 | NUR ---
PT RESTING IN BED. PT STATES PAIN HAS SUBSIDED SINCE PAIN MEDICATIONS. NO APPARENT DISTRESS NOTED. PT DENIES ANY NAUSEA. DISCUSSED POC. PT VERBALIZED UNDERSTANDING. CALL LIGHT WITHIN REACH. WILL CONTINUE TO MONITOR.
--- NOTE | 2020-02-16 00:11 | NUR ---
PT RESTING IN BED WITH EYES CLOSED. NO APPARENT DISTRESS NOTED. CALL LIGHT WITHIN REACH. WILL CONTINUE TO MONITOR.
[2020-02-16 03:54] VITALS: BP 148/69
--- NOTE | 2020-02-16 04:02 | NUR ---
PT RESTING IN BED WITH EYES CLOSED. NO APPARENT DISTRESS NOTED. PT DENIES ANY NAUSEA OR PAIN AT THIS TIME. FRESH ICE WATER PROVIDED. CALL LIGHT WITHIN REACH. WILL CONTINUE TO MONITOR.
[2020-02-16 05:35] LABS: HEMATOCRIT 35.1 % (37.0-47.0); HEMOGLOBIN 11.3 g/dl (12.0-16.0); MEAN CELL VOLUME 87.5 fL CALC (80.0-100.0); MEAN CORPUSCULAR HGB 28.2 pG CALC (26.0-32.0); MEAN CORPUSCULAR HGB CONC 32.2 g/dL CAL (32.0-36.0); RED BLOOD COUNT 4.01 mill/uL (4.20-5.60); RED CELL DISTRI WIDTH 15.5 % (11.5-15.5)
[2020-02-16 06:16] LABS: ALKALINE PHOSPHATASE 37 u/l (38-126); ANION GAP 6 (6-22 (CALC)); BUN 15 mg/dL (8-23); BUN/CREATININE RATIO 18 (12-20 (CALC)); CARBON DIOXIDE 31 mmol/l (22-30); CHLORIDE 104 mmol/l (95-108); CREATININE 0.9 mg/dL (0.5-1.0); GFR > 60 ML/MIN (>=60 (CALC)); GFR FOR AFR.AMER. > 60 ML/MIN (>=60 (CALC)); POTASSIUM 3.8 mmol/l (3.5-5.1); SGOT/AST 24 u/l (9-36); SODIUM 136 mmol/l (137-146)
[2020-02-16 06:26] LABS: ALBUMIN 2.7 g/dL (3.2-5.0); BILIRUBIN, TOTAL 0.2 mg/dL (0.0-1.4); TOTAL PROTEIN 5.1 g/dL (6.3-8.2)
[2020-02-16 07:31] VITALS: BP 151/66
--- NOTE | 2020-02-16 07:31 | NUR ---
PT SITTING IN BED. A&O X3. NO DISTRESS NOTED. O2 VIA NC @2L IN PLACE. PT DENIES USE OF IT AT HOME. NO OTHER NEEDS AT THIS TIME. ASSESSMENT COMPLETED. CALL LIGHT IN REACH. CONTINUE TO MONITOR.
[2020-02-16 09:19] VITALS: BP 151/66
[2020-02-16] MEDS ORDERED: COMPAZINE10 MG PO (10:33)
--- NOTE | 2020-02-16 12:11 | NUR ---
D/C INSTRUCTIONS GIVEN TO PT AND DAUGHTER. VERBALIZED UNDERSTANDING. IV INTACT UPON REMOVAL.
--- NOTE | 2020-02-16 12:20 | NUR ---
Discharge instructions given. Patient verbalizes understanding of same. Discharged in stable condition via wheelchair to home with [facility] staff. All belongings sent with pt.
== END 2020-02-16 12:20 ==
LOC: ED 10:17 → ED-I 14:40 → ED 14:53 → ED-I 14:54 → MS2 14:54
PROVIDERS: Nurse Practitioner Family; ADMIT Internal Medicine; ATTEND Internal Medicine
DX: R11.2 Nausea with vomiting, unspecified (principal); I10 Essential (primary) hypertension; C43.9 Malignant melanoma of skin, unspecified; C79.51 Secondary malignant neoplasm of bone; E11.9 Type 2 diabetes mellitus without complications; E78.5 Hyperlipidemia, unspecified; E03.9 Hypothyroidism, unspecified; Z79.4 Long term (current) use of insulin; Z20.828 Contact with and (suspected) exposure to other viral communicable diseases
CPT/HCPCS: G0378; Q9967

== ENCOUNTER 2020-03-21 07:45 | Emergency (ER) | payer MEDICARE, BC ==
[~2020-03-21] VITALS: Ht 152.4 cm; Wt 125.0 kg
[~2020-03-21 07:45] MED LIST changes: +COMPAZINE10 MG PO
[2020-03-21 08:20] LABS: HEMATOCRIT 42.2 % (37.0-47.0); HEMOGLOBIN 13.7 g/dl (12.0-16.0); IMMATURE GRANULOCYTES 0.4 % (0.0-5.0); MEAN CELL VOLUME 84.1 fL CALC (80.0-100.0); MEAN CORPUSCULAR HGB 27.3 pG CALC (26.0-32.0); MEAN CORPUSCULAR HGB CONC 32.5 g/dL CAL (32.0-36.0); NEUT# 7.09 thou/uL (2.00-7.15); RED BLOOD COUNT 5.02 mill/uL (4.20-5.60)
[2020-03-21 08:36] LABS: INTERNATIONAL NORMALIZED RATIO 1.1 RATIO (0.7-1.3); PROTHROMBIN TIME 11.2 SECONDS (9.0-12.5)
[2020-03-21 08:39] LABS: CREATININE 1.1 mg/dL (0.5-1.0); POTASSIUM 3.3 mmol/l (3.5-5.1)
[2020-03-21 09:06] LABS: ALBUMIN 3.6 g/dL (3.2-5.0); BILIRUBIN, TOTAL 0.7 mg/dL (0.0-1.4); TOTAL PROTEIN 6.9 g/dL (6.3-8.2)
[2020-03-21 10:49] LABS: URINE BLOOD DIPSTICK LARGE (NEGATIVE); URINE COLOR YELLOW; URINE GLUCOSE - DIPSTICK 100 mg/dL (NEGATIVE); URINE KETONE 15 mg/dL (NEGATIVE); URINE LEUK ESTERASE NEGATIVE (NEGATIVE); URINE NITRITE - DIPSTICK NEGATIVE (Negative); URINE PH 5.5 (4.5-8.0); URINE PROTEIN - DIPSTICK >=300 mg/dL (NEG-TRACE); URINE SPECIFIC GRAVITY 1.025; URINE UROBILINOGEN - DIPSTICK 0.2 E.U./dL (0.2)
[2020-03-21 10:54] LABS: URINE BILIRUBIN - DIPSTICK NEGATIVE (NEGATIVE)
[2020-03-21 11:00] LABS: URINE AMORPH SEDIMENT FEW hpf (NONE-FEW); URINE RBC 0-2 RBC/hpf (0-5)
[2020-03-21 11:01] LABS: URINE COARSE GRANULAR CAST FEW lpf; URINE TRANSITIONAL EPI. CELLS FEW hpf; URINE WBC 0-2 WBC/hpf (0-5)
[2020-03-21 11:45] VITALS: BP 188/75
== END 2020-03-21 11:45 | disposition hospice, home (50) ==
LOC: ED 07:45
PROVIDERS: Student in an Organized Health Care Education/Training Program
DX: S00.93XA Contusion of unspecified part of head, initial encounter (principal); M25.552 Pain in left hip; I10 Essential (primary) hypertension; E11.9 Type 2 diabetes mellitus without complications; C90.00 Multiple myeloma not having achieved remission; E03.9 Hypothyroidism, unspecified; W01.0XXA Fall on same level from slipping, tripping and stumbling without subsequent striking against object, initial encounter; Y92.009 Unspecified place in unspecified non-institutional (private) residence as the place of occurrence of the external cause; Z51.5 Encounter for palliative care; Z85.820 Personal history of malignant melanoma of skin; Z79.4 Long term (current) use of insulin

== ENCOUNTER 2020-03-24 16:54 | Observation (INO) | payer MEDICARE, BC ==
[~2020-03-24] VITALS: Ht 154.9 cm; Wt 101.0 kg
--- NOTE | 2020-03-24 16:54 | NUR ---
PT TO ROOM VIA EMS
[2020-03-24 17:35] LABS: HEMATOCRIT 40.9 % (37.0-47.0); HEMOGLOBIN 13.3 g/dl (12.0-16.0); IMMATURE GRANULOCYTES 0.3 % (0.0-5.0); MEAN CELL VOLUME 84.5 fL CALC (80.0-100.0); MEAN CORPUSCULAR HGB 27.5 pG CALC (26.0-32.0); MEAN CORPUSCULAR HGB CONC 32.5 g/dL CAL (32.0-36.0); NEUT# 3.9 thou/uL (2.00-7.15); RED BLOOD COUNT 4.84 mill/uL (4.20-5.60); RED CELL DISTRI WIDTH 15.1 % (11.5-15.5)
--- NOTE | 2020-03-24 17:50 | NUR ---
PT C/O CONTINUED LOWER BACK PAIN AND NAUSEA; PT CONTINUES TO MOVE FROM SITTING UP TO LYING BACK ON STRETCHER; ADVISED OF CONTINUED WAIT TIME
[2020-03-24 17:57] LABS: ACT PARTIAL THROMBO TIME 24.5 SECONDS (20.0-32.5); INTERNATIONAL NORMALIZED RATIO 1.1 RATIO (0.7-1.3); PROTHROMBIN TIME 10.8 SECONDS (9.0-12.5)
[2020-03-24] MEDS ORDERED: ALTACE10 M1 PO (18:02)
[2020-03-24] MEDS ORDERED: ATIVAN0.5 MG PO (18:02)
[2020-03-24] MEDS ORDERED: DURAGESIC25 MCG/H1 TD (18:08)
--- NOTE | 2020-03-24 18:15 | NUR ---
PT MEDICATED PER MAR FOR NAUSEA; PT CONTINUOSLY REPOSITONING FROM SITTING UP ON SIDE OF STRETCHER TO LAYING BACK; PT ADVISED OF CONTINUED WAIT TIME FOR TESTING; MONITORING DEVICES IN PLACE; VSS; WILL CONTINUE TO MONITOR
[2020-03-24 18:16] LABS: ALBUMIN 3.4 g/dL (3.2-5.0); ALKALINE PHOSPHATASE 65 u/l (38-126); AMYLASE 84 u/l (30-110); ANION GAP 8 (6-22 (CALC)); BUN 24 mg/dL (8-23); BUN/CREATININE RATIO 24 (12-20 (CALC)); CARBON DIOXIDE 35 mmol/l (22-30); CHLORIDE 93 mmol/l (95-108); GFR 54 ML/MIN (>=60 (CALC)); GFR FOR AFR.AMER. > 60 ML/MIN (>=60 (CALC)); LIPASE 302 u/l (23-300); POTASSIUM 2.9 mmol/l (3.5-5.1); SGOT/AST 39 u/l (9-36); SODIUM 134 mmol/l (137-146); TOTAL PROTEIN 6.5 g/dL (6.3-8.2)
[2020-03-24 18:17] LABS: BILIRUBIN, TOTAL 0.4 mg/dL (0.0-1.4)
--- NOTE | 2020-03-24 18:59 | NUR ---
REPORT TO SIDRA WALKER
--- NOTE | 2020-03-24 18:59 | NUR ---
TO CT VIA STRETCHER.
--- NOTE | 2020-03-24 19:45 | NUR ---
PT RETURNED FROM CT. REPOSITIONED. LIGHTS DIMMED. PT WANTING TO KNOW WHEN SHE GOES UPSTAIRS. VSS.
--- NOTE | 2020-03-24 20:19 | NUR ---
DR AT BEDSIDE TO DISCUSS ADMISSION. HOSPICE ON PHONE FOR DR TO SPEAK WITH.
--- NOTE | 2020-03-24 22:18 | NUR ---
PT GIVEN CLONIDINE FOR BP AND SOME OF THE NEWLY PROFILED 2100 MEDS...THAT WERE AVAILABLE IN [facility]. PT NOW C/O NAUSEA. MEDICATED WITH IV ZOFRAN. BP COMING DOWN.
--- NOTE | 2020-03-24 22:29 | NUR ---
UPDATE TO FLOOR. BP COMING DOWN.
--- NOTE | 2020-03-24 22:42 | NUR ---
PT TO FLOOR VIA STRETCHER WITH O2 VIA NC. NAUSEA SUBSIDED. POCKET MONITOR IN PLACE. FEELS BETTER. CHANGED TO GOWN.
--- NOTE | 2020-03-24 22:46 | NUR ---
REPORT TO RAS[facility]
[2020-03-24 22:50] VITALS: BP 157/70
--- NOTE | 2020-03-24 22:50 | NUR ---
PT ARRIVED TO FLOOR VIA STRETCHER ACCOMPAINED BY SUPERVISOR MARBLE. PT ALERT AND ORIENTED X3. NO APPARENT DISTRESS NOTED. PT HOME DEPENDANT ON 2L/M VIA NC. PT AMBULATED WITH X1 ASSIST FROM STRETCHER TO BED. IV SITE APPEARS HEALTHY. PT DENIES ANY PAIN OR NAUSEA AT THIS TIME. MATERIAL PLANNING ANALYST IN PLACE. PT ORIENTED TO ROOM AND CALL LIGHT SYSTEM. DISCUSSED POC. PT VERBALIZED UNDERSTANDING. CALL LIGHT WITHIN REACH. WILL CONTINUE TO MONITOR.
[2020-03-25] VITALS: BP 140/78
--- NOTE | 2020-03-25 02:27 | NUR ---
PT RESTING IN BED WITH EYES CLOSED. NO APPARENT DISTRESS NOTED. RESPIRATIONS EVEN AND UNLABORED. CALL LIGHT WITHIN REACH. WILL CONTINUE TO MONITOR.
[2020-03-25 04:30] VITALS: BP 149/67
[2020-03-25 05:26] LABS: HEMATOCRIT 38.5 % (37.0-47.0); IMMATURE GRANULOCYTES 0.2 % (0.0-5.0); MEAN CELL VOLUME 86.9 fL CALC (80.0-100.0); MEAN CORPUSCULAR HGB 27.1 pG CALC (26.0-32.0); MEAN CORPUSCULAR HGB CONC 31.2 g/dL CAL (32.0-36.0); NEUT# 2.79 thou/uL (2.00-7.15); RED BLOOD COUNT 4.43 mill/uL (4.20-5.60)
[2020-03-25 05:44] LABS: CREATININE 1.1 mg/dL (0.5-1.0); POTASSIUM 3.1 mmol/l (3.5-5.1)
[2020-03-25 08:42] VITALS: BP 128/62
--- NOTE | 2020-03-25 08:42 | NUR ---
PT SITTING ON THE SIDE OF THE BED. A&O X3. PT DENIES ANY N&V AT THIS TIME. STATES SHE IS FEELING BETTER THIS MORNING. ASSESSMENT COMPLETED. DISCUSSED POC. CALL LIGHT IN REACH. CONTINUE TO MONITOR.
--- NOTE | 2020-03-25 13:45 | NUR ---
PT SLEEPING IN BED. NO DISTRESS NOTED. RESP EVEN AND UNLABORED. CONTINUE TO MONITOR
[2020-03-25 16:16] VITALS: BP 117/41
--- NOTE | 2020-03-25 16:19 | NUR ---
PT WATCHING TV. NO DISTRESS OR NEEDS AT THIS TIME. CALL LIGHT IN REACH. CONTINUE TO MONITOR.
[2020-03-25 19:00] VITALS: BP 130/62
--- NOTE | 2020-03-25 19:16 | NUR ---
REPORT FROM EDUAR BORDEN. PT NOTED SITTING UP AT BEDSIDE. NO APPARENT DISTRESS NOTED. PT ALERT AND ORIENTED X3. IV SITE APPEARS HEALTHY WITH IV INFUSING. PRODUCT DEVELOPMENT MANAGER IN PLACE. DISCUSSED POC. PT VERBALIZED UNDERSTANDING. CALL LIGHT WITHIN REACH. WILL CONTINUE TO MONITOR.
--- NOTE | 2020-03-25 20:54 | NUR ---
PT MEDICATED ORDERED. ASSESSMENT COMPLETE. PT DENIES ANY PAIN OR DISCOMFORT. NO APPARENT DISTRESS NOTED. CALL LIGHT WITHIN REACH. WILL CONTINUE TO MONITOR.
[2020-03-25 23:00] VITALS: BP 113/69
--- NOTE | 2020-03-26 00:50 | NUR ---
PT RESTING IN BED WITH EYES CLOSED. NO APPARENT DISTRESS NOTED. CALL LIGHT WITHIN REACH. WILL CONTINUE TO MONITOR.
[2020-03-26 04:00] VITALS: BP 141/72
--- NOTE | 2020-03-26 04:01 | NUR ---
PT RESTING IN BED WITH EYES CLOSED. NO APPARENT DISTRESS NOTED. CALL LIGHT WITHIN REACH. WILL CONTINUE TO MONITOR.
[2020-03-26 05:20] LABS: URINE BILIRUBIN - DIPSTICK NEGATIVE (NEGATIVE); URINE BLOOD DIPSTICK SMALL (NEGATIVE); URINE COLOR YELLOW; URINE GLUCOSE - DIPSTICK NEGATIVE (NEGATIVE); URINE KETONE NEGATIVE (NEGATIVE); URINE LEUK ESTERASE TRACE (NEGATIVE); URINE PH 5.5 (4.5-8.0); URINE PROTEIN - DIPSTICK >=300 mg/dL (NEG-TRACE); URINE SPECIFIC GRAVITY 1.025; URINE UROBILINOGEN - DIPSTICK 0.2 E.U./dL (0.2)
[2020-03-26 05:21] LABS: HEMATOCRIT 39.2 % (37.0-47.0); HEMOGLOBIN 11.9 g/dl (12.0-16.0); IMMATURE GRANULOCYTES 0.1 % (0.0-5.0); MEAN CELL VOLUME 88.9 fL CALC (80.0-100.0); MEAN CORPUSCULAR HGB CONC 30.4 g/dL CAL (32.0-36.0); NEUT# 2.98 thou/uL (2.00-7.15); RED BLOOD COUNT 4.41 mill/uL (4.20-5.60); RED CELL DISTRI WIDTH 15.4 % (11.5-15.5)
[2020-03-26 05:49] LABS: BILIRUBIN, TOTAL 0.3 mg/dL (0.0-1.4); CREATININE 1.5 mg/dL (0.5-1.0); POTASSIUM 3.5 mmol/l (3.5-5.1)
[2020-03-26 05:52] LABS: URINE NITRITE - DIPSTICK NEGATIVE (Negative)
[2020-03-26 05:54] LABS: URINE BACTERIA MANY hpf; URINE EPITHELIAL CELLS MANY EPI/hpf (0-FEW)
[2020-03-26 05:59] LABS: ALBUMIN 2.7 g/dL (3.2-5.0); TOTAL PROTEIN 5.1 g/dL (6.3-8.2)
[2020-03-26 07:34] VITALS: BP 134/67
--- NOTE | 2020-03-26 07:34 | NUR ---
PT SITTING IN BED WATCHING TV. A&O X3. O2 VIA NC @2L IN [place]. NO DISTRESS NOTED. NO NEEDS AT THIS TIME. ASSESSMENT COMPLETED. DISCUSSED POC. CALL LIGHT IN REACH. CONTINUE TO MONITOR.
[2020-03-26 10:30] VITALS: BP 109/64
--- NOTE | 2020-03-26 12:25 | NUR ---
Discharge instructions given. Patient verbalizes understanding of same. [facility] All belongings sent with pt.
== END 2020-03-26 12:25 | disposition hospice, home (50) ==
LOC: ED 16:54 → ED-I 20:29 → ED 20:39 → MS2 20:40 → ED-I 20:40 → MS2 21:04
PROVIDERS: Nurse Practitioner Family; ADMIT Internal Medicine; ATTEND Internal Medicine
DX: R11.2 Nausea with vomiting, unspecified (principal); E87.6 Hypokalemia; E86.0 Dehydration; I10 Essential (primary) hypertension; E11.9 Type 2 diabetes mellitus without complications; C43.9 Malignant melanoma of skin, unspecified; C79.9 Secondary malignant neoplasm of unspecified site; E03.9 Hypothyroidism, unspecified; E78.5 Hyperlipidemia, unspecified; Z79.4 Long term (current) use of insulin; Z51.5 Encounter for palliative care; Z20.828 Contact with and (suspected) exposure to other viral communicable diseases; R55 Syncope and collapse; I95.1 Orthostatic hypotension; S80.211A Abrasion, right knee, initial encounter; W19.XXXA Unspecified fall, initial encounter; Z11.59 Encounter for screening for other viral diseases
CPT/HCPCS: G0378; Q9967

== ENCOUNTER 2020-03-26 14:08 | Observation (INO) | payer MEDICARE, BC ==
[~2020-03-26] VITALS: Ht 154.9 cm; Wt 103.0 kg
[~2020-03-26 14:08] MED LIST changes: +ATIVAN0.5 MG PO; +DURAGESIC25 MCG/H1 TD
[2020-03-26 14:59] LABS: HEMATOCRIT 37.8 % (37.0-47.0); HEMOGLOBIN 11.6 g/dl (12.0-16.0); IMMATURE GRANULOCYTES 0.2 % (0.0-5.0); MEAN CELL VOLUME 88.3 fL CALC (80.0-100.0); MEAN CORPUSCULAR HGB 27.1 pG CALC (26.0-32.0); MEAN CORPUSCULAR HGB CONC 30.7 g/dL CAL (32.0-36.0); NEUT# 4.21 thou/uL (2.00-7.15); RED BLOOD COUNT 4.28 mill/uL (4.20-5.60); RED CELL DISTRI WIDTH 15.6 % (11.5-15.5)
[2020-03-26 15:18] LABS: ALBUMIN 2.9 g/dL (3.2-5.0); BILIRUBIN, TOTAL 0.2 mg/dL (0.0-1.4); CREATININE 1.8 mg/dL (0.5-1.0); POTASSIUM 3.5 mmol/l (3.5-5.1); TOTAL PROTEIN 5.6 g/dL (6.3-8.2)
[2020-03-26 15:19] LABS: ACT PARTIAL THROMBO TIME 24.3 SECONDS (20.0-32.5); PROTHROMBIN TIME 10.1 SECONDS (9.0-12.5)
[2020-03-26 15:48] LABS: TSH, 3RD GENERATION 3.59 uIU/mL (0.47 - 4.68)
[2020-03-26 18:21] LABS: URINE BILIRUBIN - DIPSTICK NEGATIVE (NEGATIVE); URINE BLOOD DIPSTICK MODERATE (NEGATIVE); URINE COLOR YELLOW; URINE GLUCOSE - DIPSTICK 100 mg/dL (NEGATIVE); URINE KETONE NEGATIVE (NEGATIVE); URINE LEUK ESTERASE NEGATIVE (NEGATIVE); URINE NITRITE - DIPSTICK NEGATIVE (Negative); URINE PH 5.5 (4.5-8.0); URINE PROTEIN - DIPSTICK >=300 mg/dL (NEG-TRACE); URINE UROBILINOGEN - DIPSTICK 0.2 E.U./dL (0.2)
[2020-03-27] VITALS (7 sets, daily range): BP systolic 96–165; BP diastolic 48–68
[2020-03-28] VITALS (7 sets, daily range): BP systolic 136–177; BP diastolic 57–81
[2020-03-28 12:19] LABS: ANION GAP 6 (6-22 (CALC)); BUN 19 mg/dL (8-23); BUN/CREATININE RATIO 22 (12-20 (CALC)); CARBON DIOXIDE 26 mmol/l (22-30); CHLORIDE 110 mmol/l (95-108); CREATININE 0.9 mg/dL (0.5-1.0); GFR > 60 ML/MIN (>=60 (CALC)); GFR FOR AFR.AMER. > 60 ML/MIN (>=60 (CALC)); POTASSIUM 3.9 mmol/l (3.5-5.1); SODIUM 138 mmol/l (137-146)
== END 2020-03-28 16:23 | disposition home health service (06) ==
LOC: ED 14:08 → ED-I 20:25 → ED 20:46 → MS2 20:47 → ED 20:47 → ED-I 20:47 → MS2 22:14
PROVIDERS: Family Medicine; Nurse Practitioner Family; ADMIT Internal Medicine; ATTEND Internal Medicine
DX: E86.0 Dehydration (principal); I10 Essential (primary) hypertension; I95.1 Orthostatic hypotension; E11.9 Type 2 diabetes mellitus without complications; E03.9 Hypothyroidism, unspecified; E78.5 Hyperlipidemia, unspecified; C43.9 Malignant melanoma of skin, unspecified; C79.9 Secondary malignant neoplasm of unspecified site; S80.211A Abrasion, right knee, initial encounter; W19.XXXA Unspecified fall, initial encounter; Z79.4 Long term (current) use of insulin; Z11.59 Encounter for screening for other viral diseases
CPT/HCPCS: G0378

== ENCOUNTER 2020-04-04 09:22 | Inpatient (IN) | payer MEDICARE, BC ==
[2020-04-04] VITALS (11 sets, daily range): BP systolic 82–192; BP diastolic 48–87
[~2020-04-04] VITALS: Ht 154.9 cm; Wt 110.0 kg
[2020-04-04 09:47] LABS: URINE BILIRUBIN - DIPSTICK NEGATIVE (NEGATIVE); URINE BLOOD DIPSTICK LARGE (NEGATIVE); URINE COLOR YELLOW; URINE GLUCOSE - DIPSTICK NEGATIVE (NEGATIVE); URINE KETONE NEGATIVE (NEGATIVE); URINE LEUK ESTERASE NEGATIVE (NEGATIVE); URINE NITRITE - DIPSTICK NEGATIVE (Negative); URINE PROTEIN - DIPSTICK 100 mg/dL (NEG-TRACE); URINE SPECIFIC GRAVITY >=1.030; URINE UROBILINOGEN - DIPSTICK 0.2 E.U./dL (0.2)
[2020-04-04 09:49] LABS: URINE RBC 50-100 RBC/hpf (0-5)
[2020-04-04 09:50] LABS: URINE AMORPH SEDIMENT MODERATE hpf (NONE-FEW)
[2020-04-04 09:51] LABS: URINE COARSE GRANULAR CAST FEW lpf; URINE HYALINE CAST FEW lpf (NONE-RARE); URINE TRANSITIONAL EPI. CELLS FEW hpf
[2020-04-04 09:52] LABS: URINE WBC 0-2 WBC/hpf (0-5)
[2020-04-04 10:38] LABS: HEMOGLOBIN 12.1 g/dl (12.0-16.0); IMMATURE GRANULOCYTES 0.4 % (0.0-5.0); MEAN CELL VOLUME 92.8 fL CALC (80.0-100.0); MEAN CORPUSCULAR HGB 27.4 pG CALC (26.0-32.0); MEAN CORPUSCULAR HGB CONC 29.5 g/dL CAL (32.0-36.0); NEUT# 3.95 thou/uL (2.00-7.15); RED BLOOD COUNT 4.42 mill/uL (4.20-5.60); RED CELL DISTRI WIDTH 15.4 % (11.5-15.5)
[2020-04-04 11:00] LABS: CREATININE 1.1 mg/dL (0.5-1.0)
[2020-04-04 11:01] LABS: ALBUMIN 3.5 g/dL (3.2-5.0); BILIRUBIN, TOTAL 0.5 mg/dL (0.0-1.4); POTASSIUM 5.2 mmol/l (3.5-5.1)
[2020-04-04 11:31] LABS: TSH, 3RD GENERATION 4.63 uIU/mL (0.47 - 4.68)
[2020-04-04] MEDS ORDERED: POT CHLORIDE20 ME3 PO (12:34)
[2020-04-04] MEDS ORDERED: LORAZEPAM0.5 MG PO (12:36)
[2020-04-04] MEDS ORDERED: LASIX 20 MG TAB20 MG PO (12:38)
[2020-04-04] MEDS ORDERED: HYDROMORPHON4 MG PO (12:38)
[2020-04-04] MEDS ORDERED: EZETIMIBE10 MG PO (12:39)
[2020-04-04] MEDS ORDERED: PROTONIX40 M4 PO (12:41)
[2020-04-04] MEDS ORDERED: PROTONIX40 M2 PO (15:23)
[2020-04-04] MEDS ORDERED: CELEXA10 MG PO (15:34)
[2020-04-05] VITALS (14 sets, daily range): BP systolic 140–212; BP diastolic 50–94
[2020-04-05 04:56] LABS: HEMATOCRIT 37.2 % (37.0-47.0); HEMOGLOBIN 11.3 g/dl (12.0-16.0); MEAN CELL VOLUME 89.9 fL CALC (80.0-100.0); MEAN CORPUSCULAR HGB 27.3 pG CALC (26.0-32.0); MEAN CORPUSCULAR HGB CONC 30.4 g/dL CAL (32.0-36.0); RED BLOOD COUNT 4.14 mill/uL (4.20-5.60)
[2020-04-05 05:19] LABS: ANION GAP 8 (6-22 (CALC)); BUN 17 mg/dL (8-23); BUN/CREATININE RATIO 20 (12-20 (CALC)); CARBON DIOXIDE 30 mmol/l (22-30); CHLORIDE 104 mmol/l (95-108); CREATININE 0.9 mg/dL (0.5-1.0); GFR > 60 ML/MIN (>=60 (CALC)); GFR FOR AFR.AMER. > 60 ML/MIN (>=60 (CALC)); MAGNESIUM 1.5 mg/dL (1.6-2.3); POTASSIUM 4.3 mmol/l (3.5-5.1); SODIUM 137 mmol/l (137-146)
[2020-04-06] VITALS (15 sets, daily range): BP systolic 111–198; BP diastolic 48–92
[2020-04-06 05:33] LABS: HEMATOCRIT 38.6 % (37.0-47.0); HEMOGLOBIN 11.6 g/dl (12.0-16.0); IMMATURE GRANULOCYTES 0.6 % (0.0-5.0); MEAN CELL VOLUME 90.2 fL CALC (80.0-100.0); MEAN CORPUSCULAR HGB 27.1 pG CALC (26.0-32.0); MEAN CORPUSCULAR HGB CONC 30.1 g/dL CAL (32.0-36.0); NEUT# 3.64 thou/uL (2.00-7.15); RED BLOOD COUNT 4.28 mill/uL (4.20-5.60); RED CELL DISTRI WIDTH 15.5 % (11.5-15.5)
[2020-04-06 05:50] LABS: ANION GAP 9 (6-22 (CALC)); BUN 15 mg/dL (8-23); BUN/CREATININE RATIO 18 (12-20 (CALC)); CARBON DIOXIDE 31 mmol/l (22-30); CHLORIDE 102 mmol/l (95-108); CREATININE 0.8 mg/dL (0.5-1.0); GFR > 60 ML/MIN (>=60 (CALC)); GFR FOR AFR.AMER. > 60 ML/MIN (>=60 (CALC)); MAGNESIUM 1.7 mg/dL (1.6-2.3); POTASSIUM 4.3 mmol/l (3.5-5.1); SODIUM 138 mmol/l (137-146)
[2020-04-07] VITALS (8 sets, daily range): BP systolic 117–155; BP diastolic 62–107
[2020-04-07 05:36] LABS: IMMATURE GRANULOCYTES 0.6 % (0.0-5.0); MEAN CORPUSCULAR HGB 27.4 pG CALC (26.0-32.0); MEAN CORPUSCULAR HGB CONC 30.8 g/dL CAL (32.0-36.0); NEUT# 3.72 thou/uL (2.00-7.15); RED BLOOD COUNT 4.38 mill/uL (4.20-5.60); RED CELL DISTRI WIDTH 15.1 % (11.5-15.5)
[2020-04-07 05:59] LABS: ANION GAP 6 (6-22 (CALC)); BUN 13 mg/dL (8-23); BUN/CREATININE RATIO 17 (12-20 (CALC)); CARBON DIOXIDE 34 mmol/l (22-30); CHLORIDE 105 mmol/l (95-108); CREATININE 0.8 mg/dL (0.5-1.0); GFR > 60 ML/MIN (>=60 (CALC)); GFR FOR AFR.AMER. > 60 ML/MIN (>=60 (CALC)); POTASSIUM 3.9 mmol/l (3.5-5.1); SODIUM 141 mmol/l (137-146)
== END 2020-04-07 14:05 | disposition short-term general hospital (02) | DRG 70 ==
LOC: ED 09:22 → ED-I 11:17 → ED 11:47 → ICU 11:48
PROVIDERS: Family Medicine; Nurse Practitioner; ADMIT Internal Medicine; ATTEND Internal Medicine
PROC: 5A09357 Assistance with Respiratory Ventilation, Less than 24 Consecutive Hours, Continuous Positive Airway Pressure (ICD-10-PCS; principal; 2020-04-04)
PROC: 0T9B70Z Drainage of Bladder with Drainage Device, Via Natural or Artificial Opening (ICD-10-PCS; 2020-04-04)
PROC: 05HB33Z Insertion of Infusion Device into Right Basilic Vein, Percutaneous Approach (ICD-10-PCS; 2020-04-05)
DX: G93.41 Metabolic encephalopathy (principal); J96.02 Acute respiratory failure with hypercapnia; J96.01 Acute respiratory failure with hypoxia; E87.2 Acidosis; C79.51 Secondary malignant neoplasm of bone; C43.9 Malignant melanoma of skin, unspecified; I10 Essential (primary) hypertension; E11.9 Type 2 diabetes mellitus without complications; E03.9 Hypothyroidism, unspecified; E86.0 Dehydration; E87.70 Fluid overload, unspecified; E78.5 Hyperlipidemia, unspecified; G47.30 Sleep apnea, unspecified; Z78.1 Physical restraint status; Z79.4 Long term (current) use of insulin; Z20.828 Contact with and (suspected) exposure to other viral communicable diseases
CPT/HCPCS: J0692; J1650; J2060; J3370; J3475